=== PATIENT | female | born 1950 | race Caucasian/White ===

== ENCOUNTER 2022-08-15 11:49 | Emergency (ER) | payer MEDICARE, SELFPAY ==
[2022-08-15 12:04] VITALS: BP 108/54; PULSE 77; RESP 18; TEMP 36.6; O2SAT 100; BMI 23.8
[2022-08-15 12:13] VITALS: BP 97/69; PULSE 74; RESP 18; TEMP 36.6; O2SAT 100
[2022-08-15 12:26] VITALS: O2SAT 100
[2022-08-15] MEDS: ondansetron 2 mg/ML SDV 2 mL 4 MG IVP (12:36)
[2022-08-15] MEDS: sodium chloride 0.9% 1,000 ML 999 ML IV (12:36)
[2022-08-15 13:02] LABS: Basophils # 0.1 10^3/uL (0.0-0.1); Basophils % 0.7 %; Eosinophils # 0.4 10^3/uL (0.0-0.8); Eosinophils % 3.6 %; Hematocrit 34.4 % (37.0-47.0); Hemoglobin 10.5 g/dL (11.5-15.3); Lymphocytes # 1.4 10^3/uL (0.8-4.8); Mean Corpuscular HGB Conc 30.5 g/dL (30.0-36.0); Mean Corpuscular Hemoglobin 27.9 pg (28.0-34.0); Mean Corpuscular Volume 91.2 fl (81-99); Mean Platelet Volume 10.6 fL (7.4-10.4); Monocytes # 0.7 10^3/uL (0.2-0.9); Monocytes % 6.8 %; Neutrophils # 8.24 10^3/uL (1.8-7.7); Neutrophils % 75.5 %; Nucleated Red Blood Cells % 0 %; Platelet Count 320 10^3/cmm (130-400); Red Blood Count 3.77 10^6/uL (4.1-5.3); Red Cell Distribution Width 15.3 % (12.1-15.1); White Blood Count 10.9 10^3/uL (4.0-10.0)
--- NOTE | 2022-08-15 13:04 | W.ED.NAVMDI ---
HPI - Nausea/Vomiting/Diarrhea General: Chief complaint: Nausea/Vomiting/Diarrhea Stated complaint: Cant keep anything down Time Seen by Provider: 08/15/22 12:01 Source: patient Mode of arrival: ambulatory History of Present Illness: 71-year-old female presents emergency room with complaint of Nausea and vomiting for the last several weeks. She is also had diarrhea she states anytime she eats anything it triggers a loose bowel movement. She had hemorrhoid surgery in June since and has had difficulty with her GI issues. She denies any medic easy melena hematemesis or coffee-ground emesis was recently treated for a bladder infection approximately 2 weeks ago but did not complete her course of antibiotics because of GI upset. She still has some mild dysuria and chills. No flank pain. No hematochezia or melena no hematemesis MD elicited complaint: nausea, vomiting and diarrhea Onset (ago): week(s) (~3) Description of vomiting: watery and bilious Description of diarrhea: watery and semi-solid Associated nausea: Yes Associated abdominal pain: Yes Location of pain: Diffuse Pain consistency: intermittent Severity: mild Associated symtoms: Reports dysuria, fatigue, anorexia, malaise, nausea and weakness; Denies altered mental status, anxiety, bloating, change in vision, chest pain, cough, diaphoresis, decreased urine output, dizziness, epistaxis, fecal incontinence, fevers/chills, headache(s), myalgias, numbness, palpitations, rash, short of breath, syncope, tenesmus or tinnitus Review of Systems Const: Reports: fatigue and malaise; Denies: fever(s), chills or diaphoresis Eyes: Denies: change in vision ENMT: Denies: tinnitus or epistaxis Card: Denies: chest pain, palpitations or syncope Resp: Denies: dyspnea, productive cough or non-productive cough GI: Reports: abdominal pain and nausea; Denies: vomiting, hematemesis, bloating, fecal incontinence or hematochezia : Reports: dysuria; Denies: flank pain, difficulty voiding, urinary frequency or urinary urgency Neuro: Denies: headache(s) or dizziness Psych: Denies: anxiety PFSH ED PFSH: Medical History Acute bacterial sinusitis Alzheimer disease COPD (chronic obstructive pulmonary disease) Hypertension Social History Smoking and tobacco status: former smoker Physical Exam Const: COMMON NORMALS: no acute distress EXAM LIMITATIONS: no altered mental status GENERAL APPEARANCE: cooperative and comfortable ORIENTATION/CONSCIOUSNESS: Yes awake, Yes oriented to person, Yes oriented to place and Yes oriented to time HENMT: COMMON NORMALS: normocephalic, atraumatic, hearing grossly normal bilaterally, external ears normal, EAC's normal, TM's normal bilaterally, Normal nasal mucous membranes and turbinates present, moist oral mucous membranes and oropharynx normal HEAD & SCALP: normocephalic and atraumatic NOSE: Normal nasal mucous membranes and turbinates present EXTERNAL EAR: Yes external ears normal EXTERNAL AUDITORY CANAL: EAC's normal TYMPANIC MEMBRANE: TM's normal bilaterally Eye: COMMON NORMALS: Equal, round and reactive pupils present, EOMs intact bilaterally, conjunctivae normal and no scleral icterus CONJUNCTIVA: Yes conjunctivae normal PUPIL: Yes Equal, round and reactive pupils present Neck/C-Spine: COMMON NORMALS: full ROM, no lymphadenopathy, supple and no JVD Lymph: LYMPHATIC: no lymphadenopathy noted and no lymphedema noted Resp: COMMON NORMALS: normal respiratory effort, No retractions, No use of accessory muscles and clear to auscultation bilaterally AUSCULTATION: clear to auscultation bilaterally Cardio: COMMON NORMALS: no JVD, regular rate, regular rhythm and No murmurs present (Cardio) RATE: regular rate RHYTHM: regular rhythm GI: COMMON NORMALS: Soft to palpation and No hepatosplenomegaly present AUSCULTATION: Yes normoactive bowel sounds PALPATION: Yes Soft to palpation, No Tenderness to palpation present (GI), No Guarding due to palpation present (GI) and Yes No hepatosplenomegaly present Extremity: COMMON NORMALS: normal to inspection, capillary refill normal, no clubbing, cyanosis or edema, no calf tenderness and no pedal edema Neuro: SENSORIUM/ORIENTATION: Yes oriented to person, Yes oriented to place and Yes oriented to time Skin: COMMON NORMALS: no rashes or lesions noted GENERAL SKIN EXAM: no rashes or lesions noted Course Vital Signs: Vital signs: Vital Signs Temperature 97.8 F 08/15/22 12:13 Pulse Rate 80 08/15/22 13:50 Respiratory Rate 18 08/15/22 12:13 Blood Pressure 124/57 08/15/22 13:50 Pulse Oximetry 100 08/15/22 13:50 Oxygen Delivery Me thod 08/15/22 13:50 Oxygen Flow Rate 2 08/15/22 12:26 MDM - Nausea/Vomiting/Diarrhea Medical Decision Making Labs reviewed very mild hyperkalemia we will have her stop her potassium. She she did recently have a colonoscopy and a hemorrhoid surgery. She thinks that this is what caused all of her problems discussed that I doubt that that is the case. There is nothing really intrinsic about those that should cause significant issues. She did have +1 ketones on her urine but no signs of infection. Hold potassium, push fluids for rehydration for the next 2 to 3 days and advance as tolerated follow-up with primary care next week to recheck potassium. We are checking ACDF prior to discharge although she from what she describes I do not believe she has C. difficile and I think she should be screened for it. Medical Records I reviewed the patient's medical records. Lab Data I reviewed the patient's lab results. : 08/15/22 12:47 08/15/22 12:47 Laboratory Results WBC 10.9 10^3/uL (4.0-10.0) H 08/15/22 12:47 RBC 3.77 10^6/uL (4.1-5.3) L 08/15/22 12:47 Hgb 10.5 g/dL (11.5-15.3) L 08/15/22 12:47 Hct 34.4 % (37.0-47.0) L 08/15/22 12:47 MCV 91.2 fl (81-99) 08/15/22 12:47 MCH 27.9 pg (28.0-34.0) L 08/15/22 12:47 MCHC 30.5 g/dL (30.0-36.0) 08/15/22 12:47 RDW 15.3 % (12.1-15.1) H 08/15/22 12:47 Plt Count 320 10^3/cmm (130-400) 08/15/22 12:47 MPV 10.6 fL (7.4-10.4) H 08/15/22 12:47 Neut % (Auto) 75.5 % 08/15/22 12:47 Lymph % (Auto) 13.0 % 08/15/22 12:47 [place] % (Auto) 6.8 % 08/15/22 12:47 Eos % (Auto) 3.6 % 08/15/22 12:47 Baso % (Auto) 0.7 % 08/15/22 12:47 Neut # (Auto) 8.24 10^3/uL (1.8-7.7) H 08/15/22 12:47 Lymph # (Auto) 1.4 10^3/uL (0.8-4.8) 08/15/22 12:47 [place] # (Auto) 0.7 10^3/uL (0.2-0.9) 08/15/22 12:47 Eos # (Auto) 0.4 10^3/uL (0.0-0.8) 08/15/22 12:47 Baso # (Auto) 0.1 10^3/uL (0.0-0.1) 08/15/22 12:47 Nucleated RBC % (auto) 0 % 08/15/22 12:47 Nucleated RBCs # 0.0 /100WBC 08/15/22 12:47 Sodium 131 mmol/L (136-145) L 08/15/22 12:47 Potassium 5.2 mmol/L (3.5-5.1) H 08/15/22 12:47 Chloride 98 mmol/L (98-107) 08/15/22 12:47 Carbon Dioxide 25 mmol/L (22-29) 08/15/22 12:47 Anion Gap 13.2 (5-19) 08/15/22 12:47 BUN 16 mg/dL (8-23) 08/15/22 12:47 Creatinine 0.8 mg/dL (0.5-0.9) 08/15/22 12:47 GFR Calculation Not Reportable 08/15/22 12:47 Glucose 103 mg/dL (65-115) 08/15/22 12:47 Calculated Osmolality 273 mOsm/kg (285-295) L 08/15/22 12:47 Calcium 9.6 mg/dL (8.5-10.5) 08/15/22 12:47 Total Bilirubin 0.2 mg/dL (0.15-1.2) 08/15/22 12:47 AST 31 U/L (0-32) 08/15/22 12:47 ALT 15 U/L (0-33) 08/15/22 12:47 Alkaline Phosphatase 73 U/L (35-105) 08/15/22 12:47 Total Protein 7.4 g/dL (6.6-8.7) 08/15/22 12:47 Albumin 3.6 g/dL (3.5-5.2) 08/15/22 12:47 Globulin 3.8 g/dL (1.3-4.6) 08/15/22 12:47 Urine Color Yellow (Yellow) 08/15/22 13:30 Urine Appearance Clear (CLEAR) 08/15/22 13:30 Urine pH 5 (5-7) 08/15/22 13:30 Ur Specific [place] 1.020 (1.005-1.030) 08/15/22 13:30 Urine Protein Neg (Negative) 08/15/22 13:30 Urine Glucose (UA) Norm (Normal) 08/15/22 13:30 Urine Ketones 1+ (Negative) H 08/15/22 13:30 Urine Blood Neg (Negative) 08/15/22 13:30 Urine Nitrate Negative (Negative) 08/15/22 13:30 Urine Bilirubin Neg (Negative) 08/15/22 13:30 Urine Urobilinogen Norm mg/dL (Negative) 08/15/22 13:30 Ur Leukocyte Esterase Negative (Negative) 08/15/22 13:30 Discharge Plan Discharge Patient Disposition: Home Clinical Impression: Nausea & vomiting, Diarrhea, Hyperkalemia Condition: Stable Prescriptions: New promethazine 25 mg tablet 25 mg PO Q6H PRN (Reason: nausea and vomiting) Qty: 20 0RF Held potassium chloride 20 mEq tablet extended release PO Hold Instructions: Resume on 08/15/22. No Action buspirone 10 mg tablet PO famotidine 40 mg tablet PO atenolol 50 mg tablet PO montelukast 10 mg tablet PO fluticasone propionate 50 mcg/actuation spray,suspension intranasal alprazolam 0.5 mg tablet PO citalopram 10 mg tablet PO Nicotrol 10 mg cartridge inhalation cetirizine 10 mg tablet PO amoxicillin-pot clavulanate [Augmentin] 875-125 mg tablet 1 tab PO BID 7 Days Qty: 14 0RF prednisone 20 mg tablet 40 mg PO .Daily in A.M. 5 Days Qty: 10 0RF Discharge Orders: Discharge ED (Routine); Ordered 08/15/22 Ordered By: Cole Dimas Referrals: Krysta Osorio FNP [Primary Care Provider] - Patient Instructions: Opioid Safety, Pain Management Activity Restrictions/Additional Instructions: Liquid diet for 24 to 48 hours then advance as tolerated follow-up with your primary care doctor next week to recheck your potassium. Coding Level of Care Code ED [employer] for Chg Fwd Exam Comprehensive
[2022-08-15 13:13] VITALS: BP 124/57; PULSE 75; O2SAT 100
[2022-08-15 13:16] LABS: Alanine Aminotransferase 15 U/L (0-33); Albumin Level 3.6 g/dL (3.5-5.2); Alkaline Phosphatase 73 U/L (35-105); Anion Gap 13.2 (5-19); Aspartate Amino Transferase 31 U/L (0-32); Blood Urea Nitrogen 16 mg/dL (8-23); Calcium 9.6 mg/dL (8.5-10.5); Carbon Dioxide 25 mmol/L (22-29); Chloride 98 mmol/L (98-107); Creatinine Clr Calc Pharmacy 53.0414; Globulin 3.8 g/dL (1.3-4.6); Glucose 103 mg/dL (65-115); Osmolality Calculated 273 mOsm/kg (285-295); Potassium 5.2 mmol/L (3.5-5.1); Sodium 131 mmol/L (136-145); Total Bilirubin 0.2 mg/dL (0.15-1.2); Total Protein 7.4 g/dL (6.6-8.7)
[2022-08-15 13:41] LABS: Add Urine Microscopic? NO; Charge for UA Resulting for Rev
[2022-08-15 13:43] LABS: Bilirubin Urine Neg (Negative); Blood Urine Neg (Negative); Glucose Urine UA Norm (Normal); Ketones Urine 1+ (Negative); Leukocyte Esterase Urine Negative (Negative); Nitrate Urine Negative (Negative); Protein Urine Neg (Negative); Urine Appearance Clear (CLEAR); Urine Color Yellow (Yellow); Urobilinogen Urine Norm (Negative); pH Urine 5 (5-7)
[2022-08-15 13:50] VITALS: BP 124/57; PULSE 80; O2SAT 100
[2022-08-15 14:47] VITALS: BP 121/67; PULSE 80; O2SAT 100
== END 2022-08-15 14:48 | disposition home or self-care (01) ==
PROVIDERS: Emergency Provider Family Medicine; PCP Nurse Practitioner Family
DX: R11.2 Nausea with vomiting, unspecified (principal); R19.7 Diarrhea, unspecified; E87.5 Hyperkalemia
CPT/HCPCS: 36415; 80053; 81003; 85025; 96361; 96374; 99284; J2405; J7030

== ENCOUNTER → 2023-07-07 13:36 | Outpatient (BNVA) | payer MEDICARE, SELFPAY | PROVIDERS: PCP Nurse Practitioner Family; Referring Provider Radiology Radiation Oncology; Visit Provider Surgery | DX: C21.0 Malignant neoplasm of anus, unspecified (principal) | CPT/HCPCS: 99203 ==